=== PATIENT | male | born 2000 | race Hispanic/Latino ===

== ENCOUNTER 2019-07-06 13:44 | Emergency (ER) | payer SELFPAY ==
[2019-07-06] MEDS ORDERED: Ondansetron PF 4 MG/2 ML Vial ONE (15:06)
[2019-07-06] MEDS ORDERED: Morphine 4 MG/ML VIAL ONE (15:06)
[2019-07-06 15:32] LABS: #Eosinphils 0.1 thou/uL (0.0-0.7); #Lymphocytes 1.9 thou/uL (1.20-3.40); #Monocytes 0.9 thou/uL (0.11-0.59); #Neutrophils 15.2 thou/uL (1.40-6.50); %Basophils 0.2 % (0.0-1.0); %Eosinophils 0.5 % (0.0-10.0); %Lymphocytes 10.4 % (21.0-51.0); %Neutrophils 83.9 % (42.0-75.0); Mean Corpuscular HGB CONC 35.1 g/dL (32.0-36.0); Mean Corpuscular Hemoglobin 30.6 pg (27.0-31.0); Mean Corpuscular Volume 87.2 fL (78.0-98.0); Mean Platelet Volume 7.5 fL (7.4-10.4); Platelet Count 243 thou/uL (130-400); RBC Distribution Width 11.6 % (11.5-14.5); Red Blood Cell (RBC) Count 4.58 mill/uL (4.70-6.10); White Blood Cell (WBC) Count 18.1 thou/uL (4.8-10.8)
--- NOTE | 2019-07-06 15:36 | CT ---
Brain CT without IV contrast: HISTORY: Headache FINDINGS: Evidence for prior right shunt tube placement in the right frontal bone which is been removed. Marked dilatation of the lateral and third ventricles evidence for some hydrocephalus. The fourth ventricle is nondilated. The temporal horns are not significant dilated. Evidence for minimal gliosis along the prior ventriculostomy tube tract. No mass or bleed. No acute hemorrhage. IMPRESSION: Prior right frontal ventriculostomy tube which is been removed. Marked ventricular dilatation of the third and lateral ventricles but without significant dilatation of the temporal horns. No mass or bleed. No old studies.
--- NOTE | 2019-07-06 15:48 | RAD ---
Exam: Shuntogram: HISTORY: Headache FINDINGS: No evidence for a [employer] shunt tube in place. The shunt has been removed. 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 The shunt tube has been removed.
[2019-07-06 15:55] LABS: ALT (SGPT) 16 U/L (8-55); AST (SGOT) 16 U/L (5-34); Albumin 4.6 g/dL (3.5-5.0); Alkaline Phosphatase 91 U/L (40-150); Anion Gap 16 mmol/L (10-20); BUN (Urea Nitrogen) 12 mg/dL (8.9-20.6); Bilirubin, Total 0.7 mg/dL (0.2-1.2); Calc. Creatinine Clearance 0 mL/min (70-130); Calcium 9.7 mg/dL (7.8-10.44); Carbon Dioxide 21 mmol/L (22-29); Chloride 105 mmol/L (98-107); Estimated GFR-MDRD Greater than 90; Glucose 101 mg/dL (70-105); Potassium 3.9 mmol/L (3.5-5.1); Protein, Total 7.6 g/dL (6.0-8.3); Sodium 138 mmol/L (136-145)
== END 2019-07-06 21:00 | disposition home or self-care (01) ==
LOC: ERS 13:44
DX: R51 Headache (principal); F17.210 Nicotine dependence, cigarettes, uncomplicated; R11.0 Nausea
CPT/HCPCS: 70450; 75809; 80053; 85025; 96374; 96375; J2270; J2405

== ENCOUNTER 2019-07-31 13:53 | Outpatient (CLI) | payer BC ==
--- NOTE | 2019-07-31 14:42 | CT ---
CT of the paranasal sinuses without contrast: 07/31/2019 COMPARISON: Head CT performed 07/06/2019 HISTORY: Possible CSF rhinorrhea, assess for CSF leak, history of obstructive hydrocephalus TECHNIQUE: Axial CT imaging obtained at 1.25 mm intervals through the paranasal sinuses without contr ast. Coronal and sagittal reformatted imaging obtained. FINDINGS: The fourth ventricle is normal in caliber. The third ventricle is mildly prominent, measuri ng 1.2 cm in transverse dimension, as seen on the recent CT exam. Bilateral lateral ventricles are dilated, stable as well. There is a mass involving the inferior aspect of the third ventricle which i s not well defined on this examination. It contains a coarse calcification to the left of midline on image 12 and is difficult to measure on this exam. This was better evaluated on 10/29/2018 brain [facility] [place]. When compared to that prior brain MRI, the degree of ventricular enlargement involving the third ventricle and the lateral ventricles is improved. This examination demonstrates mild mucosal thickening involving the inferior aspect of bilateral fron robin sinuses, right greater than left. There is an osseous defect involving the posterior wall of the frontal sinus on the right, best seen on sagittal image 38 and axial image 23 measuring 5 mm in t ransverse dimension, resulting in communication between the right frontal sinus and the intracranial space. There is scattered mucosal thickening involving the anterior ethmoid air cells bilaterally. There is mild mucosal thickening of the right sphenoid sinus and there is polypoid mucosal thickening involving bilateral maxillary sinuses. The mastoid air cells are well aerated. The posterior wall of the frontal sinus on the left appears intact. There are areas of marked thinning of the cribriform plate in multiple regions, including on coronal image 14 on either side of the jaiden shmuel. Similar areas of marked thinning of the cribriform plate noted on either side of the dorsal aspect of the jaiden shmuel on coronal image 19. These areas may represent areas of osseous dehiscence but could als o simply represent areas of marked bone thinning. The latter is favored. The outflow tract of bilateral maxillary sinuses is opacified as is the outflow tract of bilateral fr ontal sinuses. No acute fracture or evidence of dislocation is seen. IMPRESSION: Focal area of osseous dehiscence involving the posterior wall of the frontal sinus measur ing 5 mm in transverse dimension. If the patient does in fact demonstrate CSF rhinorrhea, this would be the most concerning finding to explain a location. Areas of thinning of the cribriform plate as detailed above.. 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 This was better evaluated on prior MRI examination. The degree of ventricular enlargement has improved when compared to prior imaging CT robert bhakta Transcribed Date/Time: 07/31/2019 3:39 PM
== END 2019-07-31 13:54 | disposition home or self-care (01) ==
LOC: CT 13:53
PROVIDERS: ATTEND Neurological Surgery
DX: G91.1 Obstructive hydrocephalus (principal)
CPT/HCPCS: 70450